=== PATIENT | female | born 1990 | race Caucasian/White ===

== ENCOUNTER → 2022-03-22 | Outpatient (CLI) | payer OTHER ==
[2022-03-22 15:48] LABS: HEMATOCRIT 34.8 % (36.0-47.0); MEAN CORPUSCULAR HEMOGLOBIN 31.4 pg (27.0-33.0); MEAN CORPUSCULAR HGB CONC 34.5 g/dl (32.0-36.5); MEAN CORPUSCULAR VOLUME 91.1 fl (80.0-96.0); PLATELET COUNT, AUTOMATED 234 10^3/uL (150-450); RED BLOOD COUNT 3.82 10^6/uL (4.00-5.40)
[2022-03-22 16:37] LABS: HEPATITIS C VIRUS ABY INDEX 0.1 INDEX (<0.8); HIV 1&2 SCREEN CENTAUR NEGATIVE (NEGATIVE)
[2022-03-22 17:27] LABS: GC DNA AMPLIFICATION NEGATIVE (NEGATIVE)
== END ==
LOC: M PLALAB 12:20
PROVIDERS: ATTEND Obstetrics & Gynecology
DX: Z34.81 Encounter for supervision of other normal pregnancy, first trimester (principal)

== ENCOUNTER → 2022-05-24 | Outpatient (CLI) | payer OTHER | LOC: M WHC 11:14 | PROVIDERS: ATTEND Obstetrics & Gynecology | DX: O09.892 Supervision of other high risk pregnancies, second trimester (principal); Z3A.20 20 weeks gestation of pregnancy; O32.1XX0 Maternal care for breech presentation, not applicable or unspecified ==

== ENCOUNTER → 2022-06-13 | Outpatient (CLI) | payer OTHER | LOC: M WHC 08:10 | PROVIDERS: ATTEND Obstetrics & Gynecology | DX: Z34.92 Encounter for supervision of normal pregnancy, unspecified, second trimester (principal); Z3A.23 23 weeks gestation of pregnancy ==

== ENCOUNTER → 2022-07-06 | Outpatient (CLI) | payer OTHER ==
[2022-07-06 10:18] LABS: HEMOGLOBIN 10.5 g/dl (12.0-15.5); MEAN CORPUSCULAR HEMOGLOBIN 32.1 pg (27.0-33.0); MEAN CORPUSCULAR HGB CONC 33.9 g/dl (32.0-36.5); MEAN CORPUSCULAR VOLUME 94.8 fl (80.0-96.0); PLATELET COUNT, AUTOMATED 221 10^3/uL (150-450); RED BLOOD COUNT 3.27 10^6/uL (4.00-5.40); WHITE BLOOD COUNT 7.4 10^3/uL (4.0-10.0)
[2022-07-06 12:17] LABS: GC DNA AMPLIFICATION NEGATIVE (NEGATIVE)
== END ==
LOC: M PLALAB 07:54
PROVIDERS: ATTEND Obstetrics & Gynecology
DX: O99.891 Other specified diseases and conditions complicating pregnancy (principal); N89.8 Other specified noninflammatory disorders of vagina; Z3A.00 Weeks of gestation of pregnancy not specified

== ENCOUNTER → 2022-07-21 | Outpatient (CLI) | payer OTHER | LOC: M LAB 06:58 → M PLALAB 06:58 | PROVIDERS: ATTEND Obstetrics & Gynecology | DX: Z34.92 Encounter for supervision of normal pregnancy, unspecified, second trimester (principal) ==

== ENCOUNTER → 2022-09-14 | Outpatient (REF) | payer OTHER | LOC: M PLALAB 09:25 | PROVIDERS: ATTEND Obstetrics & Gynecology | DX: Z36.89 Encounter for other specified antenatal screening (principal); Z3A.00 Weeks of gestation of pregnancy not specified | CPT/HCPCS: 87081; G0463 ==

== ENCOUNTER 2022-10-08 17:34 | Inpatient (IN) | payer OTHER ==
[~2022-10-08] VITALS: Ht 157.5 cm; Wt 71.4 kg
[2022-10-08] VITALS (16 sets, daily range): BP systolic 99–141; BP diastolic 55–84
[2022-10-08] MEDS ORDERED: PRENTAB9 PO (17:44)
[2022-10-08] MEDS ORDERED: OXYTOCIN DRIP 30 UNITS in IV 1 EA IV PRN (17:45)
[2022-10-08] MEDS ORDERED: HOME MED LIST COMPLETE! XX SCH (17:45)
[2022-10-08] MEDS ORDERED: LIDOCAINE 1% MDV 20ML VIAL INFIL PRN (17:45)
[2022-10-08] MEDS ORDERED: miSOPROStol 50MCG 1/2 TABLET SL SCH (17:50)
[2022-10-08 18:39] LABS: HEMATOCRIT 36.6 % (36.0-47.0); HEMOGLOBIN 12.7 g/dl (12.0-15.5); MEAN CORPUSCULAR HEMOGLOBIN 30.8 pg (27.0-33.0); MEAN CORPUSCULAR HGB CONC 34.7 g/dl (32.0-36.5); MEAN CORPUSCULAR VOLUME 88.6 fl (80.0-96.0); PLATELET COUNT, AUTOMATED 191 10^3/uL (150-450); RED BLOOD COUNT 4.13 10^6/uL (4.00-5.40)
[2022-10-08] MEDS ORDERED: SLF 3 ML SYR IV PRN (18:40)
[2022-10-08] MEDS ORDERED: FENTANYL/ROPIVACAINE/NACL BAG 100 ML EPIDURAL SCH (20:30)
[2022-10-08] MEDS ORDERED: EPIDURAL/PCA KEYS XX PRN (20:30)
[2022-10-08] MEDS ORDERED: LR 500 ML IV PRN (20:30)
[2022-10-08] MEDS ORDERED: ePHEDrine SULFATE 25 MG/5 ML(5MG/ML) SYRINGE IVP PRN (20:30)
[2022-10-08] MEDS ORDERED: NALOXONE INJ 0.4MG/1ML VIAL IV PRN (20:30)
[2022-10-08] MEDS ORDERED: ONDANSETRON 4MG 2ML VIAL IV PRN (20:30)
[2022-10-08] MEDS ORDERED: diphenhydrAMINE 50MG/ML VIAL IV PRN (20:30)
[2022-10-08] MEDS ORDERED: SLF 3 ML SYR IV SCH (22:00)
[2022-10-09] MEDS ORDERED: OXYTOCIN 30UNITS IN 0.9% NaCl 500ML IV BAG As Ordered ONE (03:08)
[2022-10-09] MEDS ORDERED: DOCUSATE SODIUM 100MG CAPSULE PO PRN (05:10)
[2022-10-09] MEDS ORDERED: ONDANSETRON 4MG 2ML VIAL IV PRN (05:10)
[2022-10-09] MEDS ORDERED: RHOGAM 300MCG (1500IU) INJ IM SCH (05:10)
[2022-10-09] MEDS ORDERED: METHYLERGONOVINE MALEATE 0.2 MG TAB PO PRN (05:10)
[2022-10-09] MEDS ORDERED: IBUPROFEN 600MG TAB PO PRN (05:10)
[2022-10-09] MEDS ORDERED: ACETAMINOPHEN TAB 650MG DOSE (2X325MG) PO PRN (05:10)
[2022-10-09] MEDS ORDERED: LIDOCAINE 1% MDV 20ML VIAL SC ONE (05:30)
[2022-10-09 05:34] LABS: CORD GAS ABE A -5.1; CORD GAS ABE V -4.6; CORD GAS HCO3 V 20.5 MEQ/L; CORD GAS O2 SAT A 81.4 %; CORD GAS O2 SAT V 77.9 %; CORD GAS PCO2 A 37.8 mmHg; CORD GAS PCO2 V 38.2 mmHg; CORD GAS PH A 7.342 UNITS; CORD GAS PH V 7.347 UNITS; CORD GAS PO2 A 38.3 mmHg; CORD GAS PO2 V 33.8 mmHg; CORD GAS SBC V 20.2 MEQ/L; CORD GAS TCO2 A 21.2 MEQ/L; CORD GAS TCO2 V 21.6 MEQ/L
[2022-10-09] MEDS: OXYTOCIN DRIP 30 UNITS in IV 1 EA IV SCH ×2 (05:41→06:01)
[2022-10-09] MEDS: PRENATAL VITAMINS CHEWABLE TABLET PO SCH (07:08)
[2022-10-09] MEDS: IBUPROFEN 800 MG TAB PO PRN ×2 (07:09→21:11)
[2022-10-09 07:59] VITALS: BP 119/68
[2022-10-09] MEDS: DIBUCAINE 1% OINTMENT 30GM TOP PRN (08:25)
[2022-10-09] MEDS: ACETAMINOPHEN 500 MG TAB PO PRN ×2 (08:26→14:38)
[2022-10-09 17:54] VITALS: BP 112/55
[2022-10-10] MEDS: IBUPROFEN 800 MG TAB PO PRN ×2 (04:54→17:12)
[2022-10-10 06:05] VITALS: BP 110/56
[2022-10-10] MEDS: PRENATAL VITAMINS CHEWABLE TABLET PO SCH (09:30)
[2022-10-10] MEDS: ACETAMINOPHEN 500 MG TAB PO PRN ×2 (09:30→20:35)
[2022-10-10] MEDS: MOM 30ML SUSPENSION UDC PO PRN (13:43)
[2022-10-10] MEDS: ANUSOL HC CREAM 30GM TOP PRN ×2 (13:43→17:13)
[2022-10-10 18:00] VITALS: BP 126/59
[2022-10-11 07:00] VITALS: BP 126/68
[2022-10-11] MEDS ORDERED: MEASLES,MUMPS,RUBELLA VACCINE INJ (MMR-II) SC.IMMUN ONE (09:00)
[2022-10-11] MEDS: MOM 30ML SUSPENSION UDC PO PRN (09:22)
[2022-10-11] MEDS: PRENATAL VITAMINS CHEWABLE TABLET PO SCH (09:22)
[2022-10-11] MEDS: IBUPROFEN 800 MG TAB PO PRN (09:23)
[2022-10-11] MEDS: DIBUCAINE 1% OINTMENT 30GM TOP PRN (13:02)
== END 2022-10-11 15:10 | disposition home or self-care (01) | DRG 807 ==
LOC: M LDI 17:34 → M OBS 10-09 07:46
PROVIDERS: ADMIT Specialist; ATTEND Specialist
PROC: 3E0DXGC Introduction of Other Therapeutic Substance into Mouth and Pharynx, External Approach (ICD-10-PCS; 2022-10-08)
PROC: 10E0XZZ Delivery of Products of Conception, External Approach (ICD-10-PCS; principal; 2022-10-09)
PROC: 0KQM0ZZ Repair Perineum Muscle, Open Approach (ICD-10-PCS; 2022-10-09)
DX: O24.429 Gestational diabetes mellitus in childbirth, unspecified control (principal); Z37.0 Single live birth; Z3A.40 40 weeks gestation of pregnancy; O48.0 Post-term pregnancy; O70.1 Second degree perineal laceration during delivery

== ENCOUNTER → 2023-03-08 | Outpatient (REF) | payer OTHER ==
[~2023-03-08] MED LIST: PRENTAB9 PO
== END ==
LOC: M SFHCWAGY 10:34
PROVIDERS: ATTEND Nurse Practitioner Family
DX: Z12.4 Encounter for screening for malignant neoplasm of cervix (principal)
CPT/HCPCS: 87624; G0123